=== PATIENT | female | born 1935 | race Caucasian/White ===

== ENCOUNTER 2022-09-09 16:26 | Outpatient (CLI) | payer MEDICARE, OTHER, BC, SELFPAY ==
--- NOTE | 2022-09-09 16:15 | DI.RAD_ITS ---
Exam(s) XR ANKLE LT COMPLETE EXAM: XR ANKLE LT COMPLETE CLINICAL HISTORY: left ankle pain, M25.572 TECHNIQUE: 2D digital imaging was performed. Three views. COMPARISON: No exams were available for comparison FINDINGS: BONES: No acute fracture is present. No bony destructive lesion is seen. JOINTS:The ankle mortise is normally aligned. SOFT TISSUE: Diffuse swelling greater around the malleoli. IMPRESSION: Soft tissue swelling. DATA REPOSITORY: RADIATION DOSE DELIVERED:
== END 2022-09-09 16:46 ==
LOC: DI 16:28
PROVIDERS: Visit Provider Physician Assistant
DX: M25.572 Pain in left ankle and joints of left foot (principal); M25.472 Effusion, left ankle
CPT/HCPCS: 73610

== ENCOUNTER 2022-10-02 20:05 | Emergency (ER) | payer MEDICARE, OTHER, BC, SELFPAY ==
[2022-10-02 20:15] VITALS: BP 184/59; PULSE 61; RESP 14; TEMP 36.7; O2SAT 98
--- NOTE | 2022-10-02 20:58 | W.ED.GENAD ---
Discharge Plan Disposition Patient Disposition: Home Discharge Details Clinical Impression: Thrombophlebitis Primary Care Provider: Jay Hoffmann ED Provider: Khai Long Home Meds and New Rx's Prescriptions: No Action atenolol 100 mg tablet 100 mg PO DAILY hydrochlorothiazide 25 mg tablet 25 mg PO DAILY lisinopril 10 mg tablet 10 mg PO DAILY simvastatin 20 mg tablet 20 mg PO DAILY dorzolamide-timolol (PF) 2-0.5 % drops 1 drp ophthalmic (eye) QAM AND QPM Rx Instructions: 1 drop R eye AM/PM cyanocobalamin (vitamin B-12) 1,000 mcg capsule 1,000 mcg PO DAILY glucosamine HCl 500 mg tablet 1,000 mg PO DAILY Rx Instructions: administer with a meal calcium citrate 500 mg tablet, effervescent 500 mg PO DAILY Discharge Instructions Instructions: Superficial Thrombophlebitis (ED) Additional Instructions: At this time you have evidence of thrombophlebitis which are mild clots in the superficial vessels. Please take a daily 325 aspirin. Do not take any ibuprofen with this. If you do notice any stomach irritation or black stools please stop taking it immediately and take Tums or Pepto-Bismol to help settle your stomach. You can take this aspirin for the next week. Please apply a gentle Tom wrap or knee-high stockings to your left lower extremity. Apply warm compresses every 4 hours throughout the day to help it reabsorb. If you notice any worsening of your symptoms, or any new symptoms such as vomiting, diarrhea, fever, chills, shortness of breath, chest pain, numbness, weakness, or fainting , please return immediately to the emergency department for reevaluation. Please follow up with your primary care provider as soon as possible for reassessment and reevaluation. As always, it was a pleasure participating in your medical care today. Discharge Data Discharge Date/Time-TO BE ENTERED AT DEPARTURE: 10/02/22 21:05 Medical Decision Making 87-year-old female with a past medical history of hypertension, high cholesterol, who does have a somewhat chronic wound on the right coleman secondary to her previous laceration who presents today for irritation of the superficial varicosities on the left leg. Patient states that she has been having quite a few drives lasting 3 to 4 hours over the last few days. She has noticed some irritation and swelling in the varicose veins because of this. They are mildly tender. She denies any chest pain or shortness of breath. No history of blood clots. She is not on any blood thinners. No other modifying factors. Physical exam demonstrates a few peripheral varicosities which are slightly red and minimally tender to the touch. Limited bedside ultrasound demonstrates evidence of small clots noted in the varicosities. Evaluation of the deep vessels shows no evidence of blood clot. Right lower extremity demonstrates a well bandaged well-healing chronic wound. No evidence of abscess redness drainage or discharge. Symptoms inconsistent with DVT or PE. No current ultrasonography for formal ultrasonography is available at this time. However since there is no clinical evidence of DVT, and her symptoms are focally located on the superficial varicosities, there does not appear to be any clear indication for other emergent ultrasonography at this time. We will recommend daily aspirin, heat/warm compresses, and compression stockings. Discussed red flags for which to return. I have extensively reviewed the treatment plan and discharge instructions with the patient and their family. I have addressed all patient concerns at this time. The patient and family was made aware of what symptoms to monitor for that would warrant a return to the emergency department. Discussed the plan with the patient and family, they demonstrate verbal understanding and agreement with our assessment and plan at this time. The documentation in this chart was dictated using [employer] dictation software. Please excuse any dictation errors. HPI General Date/Time Provider Initiated Documentation: 10/02/22 20:45. HPI Narrative: 87-year-old female with a past medical history of hypertension, high cholesterol, who does have a somewhat chronic wound on the right coleman secondary to her previous laceration who presents today for irritation of the superficial varicosities on the left leg. Patient states that she has been having quite a few drives lasting 3 to 4 hours over the last few days. She has noticed some irritation and swelling in the varicose veins because of this. They are mildly tender. She denies any chest pain or shortness of breath. No history of blood clots. She is not on any blood thinners. No other modifying factors. Related Data Home Medications Medication Instructions Recorded Confirmed atenolol 100 mg tablet 100 mg PO DAILY 09/09/22 09/09/22 calcium citrate 500 mg (2,376 mg) 500 mg PO DAILY 09/09/22 09/09/22 effervescent tablet cyanocobalamin (vitamin B-12) 1,000 mcg PO DAILY 09/09/22 09/09/22 1,000 mcg capsule dorzolamide 2 %-timolol 0.5 % (PF) 1 drp ophthalmic (eye) QAM AND QPM 09/09/22 09/09/22 eye drops glucosamine HCl 500 mg tablet 1,000 mg PO DAILY 09/09/22 09/09/22 hydrochlorothiazide 25 mg tablet 25 mg PO DAILY 09/09/22 09/09/22 lisinopril 10 mg tablet 10 mg PO DAILY 09/09/22 09/09/22 simvastatin 20 mg tablet 20 mg PO DAILY 09/09/22 09/09/22 Allergies Allergy/AdvReac Type Severity Reaction Status Date / Time morphine AdvReac Intermediate vomit Verified 09/09/22 15:47 General Stated Complaint: GenMedical ELLI: 3 Review of Systems All systems reviewed & are unremarkable except as noted in HPI and below PFSH All Active Problems Thrombophlebitis (Acute) Social History Smoking/Tobacco Use Status: Unknown Smoking risk assessment performed?: Yes Alcohol Intake: current Alcohol Intake frequency: holidays/special occasions only Substance use type: does not use Do you feel safe at home: Yes Do you feel safe in your relationship?: Yes Exam Narrative Exam Narrative: 1.Const: Well-nourished, Well-developed, appearing stated age 2.Eyes: PERRL, no conjunctival injection, and symmetrical lids. 3.ENT: Atraumatic external nose and ears. Moist MM. Neck: Symmetric, trachea midline, No thyromegaly. 4.CVS: +S1/S2, No murmurs or gallops. Peripheral pulses 2+ and equal in all extremities. Brisk capillary refill in all extremities. 5.RESP: Unlabored respiratory effort. Clear to auscultation bilaterally. No wheezes rales or rhonchi 6.GI: Soft, Nontender/Nondistended, No hepatosplenomegaly. No guarding or rebound. 7.MSK: Normocephalic/Atraumatic, no calf tenderness on either lower extremity. Patient does have a few peripheral varicosities which are slightly red and minimally tender to the touch. Limited bedside ultrasound demonstrates evidence of small clots noted in the varicosities. Evaluation of the deep vessels shows no evidence of blood clot. Right lower extremity demonstrates a well bandaged well-healing chronic wound. No evidence of abscess redness drainage or discharge. 8.Skin: Warm, Dry. Please see musculoskeletal 9.Neuro: desktop engineer II-XII grossly intact. Sensation grossly intact, no focal neurologic deficits. 10.Psych: (AAO) x3. Appropriate mood and affect Course Vital Signs Vital signs: Vital Signs Temperature 36.7 C 10/02/22 20:15 Pulse 61 10/02/22 20:15 Respiratory Rate 14 10/02/22 20:15 Blood Pressure 184/59 H 10/02/22 20:15 Pulse Oximetry 98 10/02/22 20:15 Temperature 36.7 C 10/02/22 20:15 Temperature Source Temporal Artery Scan 10/02/22 20:15 Pulse 61 10/02/22 20:15 Respiratory Rate 14 10/02/22 20:15 Blood Pressure 184/59 H 10/02/22 20:15 Blood Pressure Position Sitting 10/02/22 20:15 Pulse Oximetry 98 10/02/22 20:15 Oxygen Delivery Method Room Air 10/02/22 20:15 Oxygen Flow Rate 0 10/02/22 20:15 Pain Level 0 10/02/22 20:15 Comment 5/10 while walking but goes away 10/02/22 20:15
== END 2022-10-02 21:05 | disposition home or self-care (01) ==
PROVIDERS: Emergency Provider Student in an Organized Health Care Education/Training Program
DX: I80.02 Phlebitis and thrombophlebitis of superficial vessels of left lower extremity (principal)
CPT/HCPCS: 99281; 99282

== ENCOUNTER 2023-03-26 05:39 | Emergency (ER) | payer MEDICARE, OTHER, BC, SELFPAY ==
--- NOTE | 2023-03-26 05:45 | DI.CT_ITS ---
Exam(s) CT HEAD CERV SPINE FACIAL WO EXAM: CT HEAD CERV SPINE FACIAL WO CLINICAL HISTORY: fell, hit left lateral anabaptist/brow. TECHNIQUE: Imaging Protocol: Axial computed tomography images with coronal and sagittal reformatted images were created and reviewed COMPARISON: No exams were available for comparison FINDINGS: CT BRAIN: There are no skull fractures nor fluid in the visualized paranasal sinuses. There is no evidence of intracranial hemorrhage, mass effect, or shift of midline structures. There are no extra-axial fluid collections. The ventricles are not enlarged or shifted and there is no blo od within the ventricular system nor within the basal cisterns. The amount of symmetrical involutional changes consistent with this patient's advanced age. CT MAXILLOFACIAL BONES: There is no evidence of facial fractures nor fluid in the visualized paranasal sinuses. there is no evidence of orbital blowout fracture. CT CERVICAL SPINE: There is no evidence of fracture nor listhesis. No significant prevertebral soft tissue swelling. There is chronic disc space narrowing at C4-5 level. Moderate disc space narrowing at C6-7 and mild degenerative anterolisthesis of C6 upon C7. Multilevel facet arthropathy but no evidence of facet ma lalignment. No osseous lesions. IMPRESSION: No acute intracranial findings on this noninfused CT scan of the brain. No evidence of facial nor orbital blowout fractures. No evidence of cervical spine fracture, malalignment, nor acute compromise of the cervical spinal can al. Degenerative changes. RADIATION DOSE DELIVERED: 1,760.06mGy.cm Total DLP DATA REPOSITORY: All CT scans at this facility are submitted to the National Radiology Data Registry (NRDR) Dose Index Registry (DIR) with the [employer] ([employer]). RADIATION OPTIMIZATION: All CT scans at this facility use at least one of these dose optimization te chniques: automated exposure control; mA and/or kV adjustment per patient size (includes targeted exa ms where dose is matched to clinical indication); or iterative reconstruction.
--- NOTE | 2023-03-26 05:45 | DI.RAD_ITS ---
Exam(s) XR FEMUR LT EXAM: XR FEMUR LT CLINICAL HISTORY: fell, left hip pain. TECHNIQUE: 2D digital imaging was performed. COMPARISON: No exams were available for comparison FINDINGS: Two views. There is no evidence of left hip nor left femur fracture. No hip joint space narrowing. Bone densit y normal. No osseous lesions. No radiopaque foreign body. IMPRESSION: No osseous findings in the left femur. DATA REPOSITORY: RADIATION DOSE DELIVERED:
--- NOTE | 2023-03-26 05:45 | DI.RAD_ITS ---
Exam(s) XR PELVIS AP EXAM: XR PELVIS AP CLINICAL HISTORY: fell, left hip pain. TECHNIQUE: 2D digital imaging was performed. COMPARISON: No exams were available for comparison FINDINGS: Single AP view pelvis. There is no evidence of pelvic nor hip fracture. No degenerative changes noted in the hips. Bone de nsity is normal. SI joints unremarkable. IMPRESSION: No fractures in the pelvis and hips. DATA REPOSITORY: RADIATION DOSE DELIVERED:
[2023-03-26 05:46] VITALS: BP 157/78; PULSE 59; RESP 16; TEMP 36.5; O2SAT 97
--- NOTE | 2023-03-26 05:52 | ED.GENADUL_ITS ---
HPI General Stated Complaint: Laceration ELLI: 4 Date/Time Provider Initiated Documentation: 03/26/23 05:41. HPI Narrative: This is a pleasant 88-year-old female with a past medical history of hypertension, high cholesterol, tonsillectomy, who is not on any blood thinners who presents today for evaluation of a fall from bed. Patient sleeps on a bed that is slightly elevated off the ground per family. She got up this morning and rolled off of the bed and hit the bedside table. She had immediate pain and bleeding from her left brow. She also hit her left hip. She had no loss of consciousness. She denies chest pain or shortness of breath. No other pain aside for the left hip and the left restoration. Tetanus was updated around 7 to 8 years ago. Related Data Home Medications Medication Instructions Recorded Confirmed atenolol 100 mg tablet 100 mg PO DAILY 09/09/22 03/26/23 calcium citrate 500 mg (2,376 mg) 500 mg PO DAILY 09/09/22 03/26/23 effervescent tablet cyanocobalamin (vitamin B-12) 1,000 mcg PO DAILY 09/09/22 03/26/23 1,000 mcg capsule dorzolamide 2 %-timolol 0.5 % (PF) 1 drp ophthalmic (eye) QAM AND QPM 09/09/22 03/26/23 eye drops glucosamine HCl 500 mg tablet 1,000 mg PO DAILY 09/09/22 03/26/23 hydrochlorothiazide 25 mg tablet 25 mg PO DAILY 09/09/22 03/26/23 lisinopril 10 mg tablet 10 mg PO DAILY 09/09/22 03/26/23 simvastatin 20 mg tablet 20 mg PO DAILY 09/09/22 03/26/23 ibuprofen 200 mg tablet (Advil) 200 mg PO Q6H PRN 11/17/22 03/26/23 latanoprost 0.005 % eye drops 1 drp ophthalmic (eye) DAILY 11/17/22 03/26/23 (Xalatan) Allergies Allergy/AdvReac Type Severity Reaction Status Date / Time morphine AdvReac Intermediate vomit Verified 03/26/23 05:45 Review of Systems All systems reviewed & are unremarkable except as noted in HPI and below PFSH All Active Problems (Updated 03/26/23 @ 07:15 by Khai Long DO) Contusion of bone (Acute) Laceration of scalp (Acute) Impairment of speech discrimination (Acute) Sensorineural hearing loss (SNHL) of both ears (Acute) Impacted cerumen, bilateral (Acute) Medical History Osteopenia Osteoarthritis of right knee Impaired fasting glucose Hypertension Glaucoma, right eye Frequent falls Chronic kidney disease Atrophic vaginitis Actinic keratoses Surgical History Hx of tonsillectomy Hx of lumpectomy Family History Mother Hypertension Social History Smoking/Tobacco Use Status: Never Smoking risk assessment performed?: Yes Alcohol Intake: current Alcohol Intake frequency: holidays/special occasions only Drug use: Never Substance use type: does not use Housing: house Do you feel safe at home: Yes Do you feel safe in your relationship?: Yes Exam Narrative Exam Narrative: 1.Const: Well-nourished, Well-developed, appearing stated age 2.Eyes: PERRL, no conjunctival injection, and symmetrical lids. 3.ENT: Atraumatic external nose and ears. Moist MM. Neck: Symmetric, trachea midline, No thyromegaly. There is no evidence of raccoon eyes, russell sign, CSF rhinorrhea, mastoid tenderness, cranial crepitus, hemotympanum, exophthalmos, or hyphema. Patient demonstrates intact dentition with no signs of tooth avulsion or fracture, no signs of jaw deformity, no evidence of a LeFort's fracture, with an intact palate, nose and orbital region. There is no evidence of a nasal septal hematoma. No proptosis. Jaw closes symmetrically. Airway is clear. There is small laceration and hematoma over the left restoration. 4.CVS: +S1/S2, No murmurs or gallops. Peripheral pulses 2+ and equal in all extremities. Brisk capillary refill in all extremities. 5.RESP: Unlabored respiratory effort. Clear to auscultation bilaterally. No wheezes rales or rhonchi 6.GI: Soft, Nontender/Nondistended, No hepatosplenomegaly. No guarding or rebound. 7.MSK: Normocephalic/Atraumatic, Extremities w/o deformity or ttp No cyanosis or clubbing, Normal movement of all extremities. No midline tenderness to palpation over the CTLS spine. Normal ROM in flexion, extension, side bend, and rotation. Patient has +5 out of 5 strength in the lower extremities in dorsiflexion and plantarflexion, knee flexion and extension, hip flexion and extension. Normal strength for dorsiflexion and plantar flexion of the great toe bilaterally. There is +2 over 2 dorsalis pedis pulses bilaterally. There is normal sensation to the skin with light touch at the foot, knee, and hip. Normal saddle sensation. Good sensation over the deep sural nerve area bilaterally. Reflexes are +2 over 4 in the patellar reflex bilaterally. +5 out of 5 strength in the medial, ulnar, radial nerve distribution bilaterally in the hands as well as intact light touch sensation to these dermatomes on the hands Patient does demonstrate minimal tenderness over the left hip on palpation at the greater trochanter. Patient ambulates well though without any other pain otherwise. 8.Skin: Warm, Dry. Small hematoma and 4 cm laceration over left restoration. No active hemorrhage. 9.Neuro: local area network administrator II-XII grossly intact. Sensation grossly intact, no focal neurologic deficits. All 6 cardinal planes of vision are fully intact. No evidence of rotatory or vertical nystagmus. The patient demonstrated a normal [id number], good dexterity. There was no evidence of dysdiadochokinesia. Patient was able to ambulate without difficulty. There was no wide-based gait. Romberg testing was normal. Atsb-by-ecjx testing was normal. Sensation was intact bilaterally as well as muscle strength bilaterally for all extremities. Patient was able to verbalize butter cup with no slurring, or miss pronunciation. 10.Psych: (AAO) x3. Appropriate mood and affect Course Vital Signs Vital signs: Vital Signs Temperature 36.5 C 03/26/23 05:46 Pulse 59 L 03/26/23 05:46 Respiratory Rate 16 03/26/23 05:46 Blood Pressure 157/78 H 03/26/23 05:46 Pulse Oximetry 97 03/26/23 05:46 Temperature 36.5 C 03/26/23 05:46 Temperature Source Temporal Artery Scan 03/26/23 05:46 Pulse 59 L 03/26/23 05:46 Respiratory Rate 16 03/26/23 05:46 Respiratory Effort Normal, Non-Labored 03/26/23 05:47 Blood Pressure 157/78 H 03/26/23 05:46 Pulse Oximetry 97 03/26/23 05:46 Oxygen Delivery Method Room Air 03/26/23 05:46 Oxygen Flow Rate 0 03/26/23 05:46 Pain Level 7 03/26/23 05:46 Procedures Laceration Laceration 1: Site: scalp Side (If applicable): left Size (cm): 4 Description: linear Depth: simple, single layer Local Anesthetic: Lidocaine 1% and with Epi Amount of anesthesia used (mL): 5 Pre-repair: wound explored, irrigated extensively and deep structures intact Skin layer closed with: nylon Size (cm): 4-0 and 5-0 Number of sutures: 3 Technique: simple, interrupted Medical Decision Making This is a pleasant 88-year-old female with a past medical history of hypertension, high cholesterol, tonsillectomy, who is not on any blood thinners who presents today for evaluation of a fall from bed. Patient sleeps on a bed that is slightly elevated off the ground per family. She got up this morning and rolled off of the bed and hit the bedside table. She had immediate pain and bleeding from her left brow. She also hit her left hip. She had no loss of consciousness. She denies chest pain or shortness of breath. No other pain aside for the left hip and the left restoration. Tetanus was updated around 7 to 8 years ago. Physical exam demonstrates 4 cm laceration hematoma over the left brow, as well as minimal tenderness over the left hip. She ambulates well though. No other tenderness on exam. Due to age and mechanism will get a CT scan of the head and face, as well as an x-ray of the hip. Will update patient's tetanus, suture the laceration, monitor closely and reassess. 7:[address] scan shows no evidence of acute intracranial etiology or cervical spine etiology. Old nasal fractures noted. This does not appear clinically acute. X-ray of the hip and pelvis negative. Patient feels well. Patient was sutured with 3 simple interrupted sutures. She tolerated this well. Normal neurologic assessment on reexamination. Patient stable for discharge. I have extensively reviewed the treatment plan and discharge instructions with the patient and their family. I have addressed all patient concerns at this time. The patient and family was made aware of what symptoms to monitor for that would warrant a return to the emergency department. Discussed the plan with the patient and family, they demonstrate verbal understanding and agreement with our assessment and plan at this time. The documentation in this chart was dictated using [employer] dictation software. Please excuse any dictation errors. FINDINGS: Limitations: Mild motion artifact. Brain: No intracranial hemorrhage appreciated. No significant focal mass effect or significant midline shift. Generalized parenchymal volume loss. Cerebral ventricles: No disproportionate ventriculomegaly. Paranasal sinuses: No air-fluid levels seen. Mastoid air cells: No mastoid effusion. Bones/joints: No acute cranial vault fracture seen. Soft tissues: No acute findings. Vasculature: Arterial calcifications. IMPRESSION: 1. No intracranial sequelae of trauma appreciated. 2. Nonacute findings as outlined above. 3. Additional studies dictated separately. FINDINGS: Limitations: Mild motion artifact. Artifact from metallic dental hardware obscures surrounding tissues. Orbital cavities: Globes intact. Bones/joints: Nondisplaced fracture of the anterior nasal spine, age indeterminate. Paranasal sinuses: No air-fluid levels seen. Lymph nodes: Bilateral cervical lymph nodes. Soft tissues: No acute pertinent abnormality demonstrated. Dental: Lucency surrounding several teeth. Correlate with dental examination. IMPRESSION: 1. Nondisplaced fracture of the anterior nassal spine, age indeterminate. 2. Additional studies dictated separately. FINDINGS: Bones/joints: No acute cervical spine fracture identified. Multilevel degenerati ve changes. Multilevel degenerative changes. At C3-C4 there is mild right foraminal narrowing. At C4-C5 there is marked right foraminal narrowing. At C5-C6 there is marked right foraminal narrowing. A t C6-C7 there is moderate right foraminal narrowing. Mild anterolisthesis of C6 on C7. Straightening of the normal cervical lordosis may reflect positioning or muscle spasm; correlate clinically. Lungs: No acute findings. Thyroid: Multiple thyroid nodules. Consider follow-up. Lymph nodes: Bilateral cervical lymph nodes. Vasculature: Arterial calcifications. Soft tissues: No acute findings. IMPRESSION: 1. No acute cervical spine fracture identified. 2. Findings as above. 3. Additional studies dictated separately. Thank you for allowing us to participate in the care of your patient. Dictated and Authenticated by: Shereen Gudino MD 03/26/2023 7:02 AM Eastern Time ([place] & [place]) FINDINGS: Bones/joints: No evidence of acute fracture. Small osseous lucencies, multiple myeloma or metastatic disease to be excluded Soft tissues: Unremarkable. IMPRESSION: No evidence of acute fracture Thank you for allowing us to participate in the care of your patient. Dictated and Authenticated by: Diamante Kelley MD 03/26/2023 7:02 AM Eastern Time ([place] & [place]) FINDINGS: Bones/joints: No evidence of fracture or dislocation. Small osseous lucencies present Soft tissues: Unremarkable. IMPRESSION: No evidence of acute fracture. Thank you for allowing us to participate in the care of your patient. Dictated and Authenticated by: Diamante Kelley MD 03/26/2023 7:05 AM Eastern Time ([place] & [place]) Quality:SDOH Health Related Social Needs: No Data to Display Discharge Plan Disposition Patient Disposition: Home Discharge Details Clinical Impression: Laceration of scalp, Contusion of bone Primary Care Provider: Harpreet Kiran ED Provider: Khai Long Home Meds and New Rx's Prescriptions: No Action atenolol 100 mg tablet 100 mg PO DAILY hydrochlorothiazide 25 mg tablet 25 mg PO DAILY lisinopril 10 mg tablet 10 mg PO DAILY simvastatin 20 mg tablet 20 mg PO DAILY dorzolamide-timolol (PF) 2-0.5 % drops 1 drp ophthalmic (eye) QAM AND QPM Rx Instructions: 1 drop R eye AM/PM cyanocobalamin (vitamin B-12) 1,000 mcg capsule 1,000 mcg PO DAILY glucosamine HCl 500 mg tablet 1,000 mg PO DAILY Rx Instructions: administer with a meal calcium citrate 500 mg tablet, effervescent 500 mg PO DAILY ibuprofen [Advil] 200 mg tablet 200 mg PO Q6H PRN latanoprost [Xalatan] 0.005 % drops 1 drp ophthalmic (eye) DAILY Discharge Instructions Instructions: Care For Your Stitches (ED) Additional Instructions: At this time the CAT scan of your scalp and head show no evidence of bony fracture or bleed in or around your brain. Your laceration has been sutured. The x-ray of your hip shows no fracture either thankfully. I suspect you have suffered a contusion over the left hip which is causing your pain. Please take Tylenol as needed for pain control. Your tetanus shot has been updated. Please keep the area clean and dry. Monitor closely for any redness, drainage or discharge. Please return in 7 to 10 days to have the wound reassessed and the sutures removed. If you come back to the emergency department here it will be free of charge for the suture removal. For long-term scar cosmesis, please make sure to avoid any sun to the area for the next year. Apply moisturizer or vitamin E to the area twice daily for the next 12 months for the best chance of wound/scar medication. Please take a daily multivitamin as well as this can help in wound healing. If you notice any worsening of your symptoms, or any new symptoms such as vomiting, diarrhea, fever, chills, shortness of breath, chest pain, numbness, weakness, or fainting , please return immediately to the emergency department for reevaluation. Please follow up with your primary care provider as soon as possible for reassessment and reevaluation. As always, it was a pleasure participating in your medical care today. Referrals: Harpreet Kiran [Primary Care Provider] -
[2023-03-26] MEDS: Lidocaine/Epinephri/Tetracaine Topical Gel 3 ML TP (05:58)
--- NOTE | 2023-03-26 07:02 | DI.VRAD_ITS ---
PROCEDURE INFORMATION: Exam: CT Head Without Contrast Exam date and time: 03/26/2023 6:18 AM Age: 88 years old Clinical indication: Injury or trauma; Fall; Blunt trauma (contusions or hematomas); Consciousness not specified; Head/scalp; Loss of consciousness not known TECHNIQUE: Imaging protocol: Computed tomography of the head without contrast. COMPARISON: No relevant prior studies available. FINDINGS: Limitations: Mild motion artifact. Brain: No intracranial hemorrhage appreciated. No significant focal mass effect or significant midline shift. Generalized parenchymal volume loss. Cerebral ventricles: No disproportionate ventriculomegaly. Paranasal sinuses: No air-fluid levels seen. Mastoid air cells: No mastoid effusion. Bones/joints: No acute cranial vault fracture seen. Soft tissues: No acute findings. Vasculature: Arterial calcifications. IMPRESSION: 1. No intracranial sequelae of trauma appreciated. 2. Nonacute findings as outlined above. 3. Additional studies dictated separately. PROCEDURE INFORMATION: Exam: CT Maxillofacial Without Contrast Exam date and time: 03/26/2023 6:18 AM Age: 88 years old Clinical indication: Injury or trauma; Fall; Blunt trauma (contusions or hematomas); Consciousness not specified; Head/scalp; Loss of consciousness not known TECHNIQUE: Imaging protocol: Computed tomography of the face without contrast. COMPARISON: No relevant prior studies available. FINDINGS: Limitations: Mild motion artifact. Artifact from metallic dental hardware obscures surrounding tissues. Orbital cavities: Globes intact. Bones/joints: Nondisplaced fracture of the anterior nasal spine, age indeterminate. Paranasal sinuses: No air-fluid levels seen. Lymph nodes: Bilateral cervical lymph nodes. Soft tissues: No acute pertinent abnormality demonstrated. Dental: Lucency surrounding several teeth. Correlate with dental examination. IMPRESSION: 1. Nondisplaced fracture of the anterior nasal spine, age indeterminate. 2. Additional studies dictated separately. PROCEDURE INFORMATION: Exam: CT Cervical Spine Without Contrast Exam date and time: 03/26/2023 6:18 AM Age: 88 years old Clinical indication: Injury or trauma; Fall; Blunt trauma (contusions or hematomas); Consciousness not specified; Head/scalp; Loss of consciousness not known TECHNIQUE: Imaging protocol: Computed tomography of the cervical spine without contrast. COMPARISON: No relevant prior studies available. FINDINGS: Bones/joints: No acute cervical spine fracture identified. Multilevel degenerative changes. Multilevel degenerative changes. At C3-C4 there is mild right foraminal narrowing. At C4-C5 there is marked right foraminal narrowing. At C5-C6 there is marked right foraminal narrowing. At C6-C7 there is moderate right foraminal narrowing. Mild anterolisthesis of C6 on C7. Straightening of the normal cervical lordosis may reflect positioning or muscle spasm; correlate clinically. Lungs: No acute findings. Thyroid: Multiple thyroid nodules. Consider follow-up. Lymph nodes: Bilateral cervical lymph nodes. Vasculature: Arterial calcifications. Soft tissues: No acute findings. IMPRESSION: 1. No acute cervical spine fracture identified. 2. Findings as above. 3. Additional studies dictated separately. Dictated and Authenticated by: Shereen Gudino MD. Ordering:VIRAJ Ridley MD
--- NOTE | 2023-03-26 07:02 | DI.VRAD_ITS ---
PROCEDURE INFORMATION: Exam: XR Pelvis Exam date and time: 03/26/2023 6:37 AM Age: 88 years old Clinical indication: Injury or trauma; Fall; Blunt trauma (contusions or hematomas); Left; Hip TECHNIQUE: Imaging protocol: Radiologic exam of the pelvis. Views: 1 or 2 view. COMPARISON: No relevant prior studies available. FINDINGS: Bones/joints: No evidence of acute fracture. Small osseous lucencies, multiple myeloma or metastatic disease to be excluded Soft tissues: Unremarkable. IMPRESSION: No evidence of acute fracture Dictated and Authenticated by: Diamante Kelley MD. Ordering:VIRAJ Ridley MD
--- NOTE | 2023-03-26 07:05 | DI.VRAD_ITS ---
PROCEDURE INFORMATION: Exam: XR Left Femur Exam date and time: 03/26/2023 6:40 AM Age: 88 years old Clinical indication: Injury or trauma; Fall; Blunt trauma; Thigh or upper leg; Left TECHNIQUE: Imaging protocol: Radiologic exam of the left femur. Views: 2 views. COMPARISON: CR XR PELVIS AP 03/26/2023 6:37 AM FINDINGS: Bones/joints: No evidence of fracture or dislocation. Small osseous lucencies present Soft tissues: Unremarkable. IMPRESSION: No evidence of acute fracture. Dictated and Authenticated by: Diamante Kelley MD. Ordering:VIRAJ Ridley MD
== END 2023-03-26 07:23 | disposition home or self-care (01) ==
PROVIDERS: Emergency Provider Student in an Organized Health Care Education/Training Program; PCP Family Medicine
DX: S01.112A Laceration without foreign body of left eyelid and periocular area, initial encounter (principal); S70.02XA Contusion of left hip, initial encounter; I10 Essential (primary) hypertension; E78.5 Hyperlipidemia, unspecified; Z23 Encounter for immunization; W06.XXXA Fall from bed, initial encounter; Y92.013 Bedroom of single-family (private) house as the place of occurrence of the external cause
CPT/HCPCS: 12013; 73552; 90471; 90715; 99284; 70450; 70486; 72125; 72170

== ENCOUNTER 2023-04-04 10:20 | Emergency (ER) | payer MEDICARE, BC, OTHER, SELFPAY ==
[2023-04-04 10:29] VITALS: BP 179/85; PULSE 69; RESP 20; TEMP 36.7; O2SAT 97
--- NOTE | 2023-04-04 10:36 | W.ED.GENAD ---
HPI General Date/Time Provider Initiated Documentation: 04/04/23 10:27. HPI Narrative: 88-year-old female presents for staple removal left scalp Related Data Home Medications Medication Instructions Recorded Confirmed atenolol 100 mg tablet 100 mg PO DAILY 09/09/22 04/04/23 calcium citrate 500 mg (2,376 mg) 500 mg PO DAILY 09/09/22 04/04/23 effervescent tablet cyanocobalamin (vitamin B-12) 1,000 mcg PO DAILY 09/09/22 04/04/23 1,000 mcg capsule dorzolamide 2 %-timolol 0.5 % (PF) 1 drp ophthalmic (eye) QAM AND QPM 09/09/22 04/04/23 eye drops glucosamine HCl 500 mg tablet 1,000 mg PO DAILY 09/09/22 04/04/23 hydrochlorothiazide 25 mg tablet 25 mg PO DAILY 09/09/22 04/04/23 lisinopril 10 mg tablet 10 mg PO DAILY 09/09/22 04/04/23 simvastatin 20 mg tablet 20 mg PO DAILY 09/09/22 04/04/23 ibuprofen 200 mg tablet (Advil) 200 mg PO Q6H PRN 11/17/22 04/04/23 latanoprost 0.005 % eye drops 1 drp ophthalmic (eye) DAILY 11/17/22 04/04/23 (Xalatan) Allergies Allergy/AdvReac Type Severity Reaction Status Date / Time morphine AdvReac Intermediate vomit Verified 04/04/23 10:31 General Stated Complaint: SutureRem ELLI: 5 Review of Systems Narrative: Scalp suture removal Exam Narrative Exam Narrative: Skin: 3 cm linear wound well-healed clean dry intact, 3 simple interrupted sutures in place Course Vital Signs Vital signs: Vital Signs Temperature 36.7 C 04/04/23 10:29 Pulse 69 04/04/23 10:29 Respiratory Rate 20 04/04/23 10:29 Blood Pressure 179/85 H 04/04/23 10:29 Pulse Oximetry 97 04/04/23 10:29 Temperature 36.7 C 04/04/23 10:29 Temperature Source Skin 04/04/23 10:29 Pulse 69 04/04/23 10:29 Respiratory Rate 20 04/04/23 10:29 Respiratory Effort Normal, Non-Labored 04/04/23 10:32 Blood Pressure 179/85 H 04/04/23 10:29 Blood Pressure Position Sitting 04/04/23 10:29 Pulse Oximetry 97 04/04/23 10:29 Oxygen Delivery Method Room Air 04/04/23 10:29 Oxygen Flow Rate 0 04/04/23 10:29 Medical Decision Making 88-year-old female presents for suture removal left scalp, 3 cm linear wound well-healed clean dry intact, no signs of infection, 3 simple interrupted sutures intact, removed at bedside. Hemostatic no signs of infection. Home care instructions and return precautions given Quality:SDOH Health Related Social Needs: No Data to Display [facility] All Active Problems (Updated 04/04/23 @ 10:38 by Meek Castillo MD) Encounter for removal of sutures (Acute) Contusion of bone (Acute) Laceration of scalp (Acute) Impairment of speech discrimination (Acute) Sensorineural hearing loss (SNHL) of both ears (Acute) Impacted cerumen, bilateral (Acute) Medical History Osteopenia Osteoarthritis of right knee Impaired fasting glucose Hypertension Glaucoma, right eye Frequent falls Chronic kidney disease Atrophic vaginitis Actinic keratoses Surgical History Hx of tonsillectomy Hx of lumpectomy Family History Mother Hypertension Social History Smoking/Tobacco Use Status: Never Smoking risk assessment performed?: Yes Alcohol Intake: current Alcohol Intake frequency: holidays/special occasions only Drug use: Never Substance use type: does not use Housing: house Do you feel safe at home: Yes Do you feel safe in your relationship?: Yes Discharge Plan Disposition Condition: Improving Discharge Details Chief Complaint: SutureRem Clinical Impression: Encounter for removal of sutures Primary Care Provider: Harpreet Kiran ED Provider: Meek Castillo Home Meds and New Rx's Prescriptions: No Action atenolol 100 mg tablet 100 mg PO DAILY hydrochlorothiazide 25 mg tablet 25 mg PO DAILY lisinopril 10 mg tablet 10 mg PO DAILY simvastatin 20 mg tablet 20 mg PO DAILY dorzolamide-timolol (PF) 2-0.5 % drops 1 drp ophthalmic (eye) QAM AND QPM Rx Instructions: 1 drop R eye AM/PM cyanocobalamin (vitamin B-12) 1,000 mcg capsule 1,000 mcg PO DAILY glucosamine HCl 500 mg tablet 1,000 mg PO DAILY Rx Instructions: administer with a meal calcium citrate 500 mg tablet, effervescent 500 mg PO DAILY ibuprofen [Advil] 200 mg tablet 200 mg PO Q6H PRN latanoprost [Xalatan] 0.005 % drops 1 drp ophthalmic (eye) DAILY Discharge Instructions Instructions: Laceration (ED)
== END 2023-04-04 10:41 | disposition home or self-care (01) ==
LOC: ER 11:01
PROVIDERS: Emergency Provider Emergency Medicine; PCP Family Medicine
DX: S01.01XD Laceration without foreign body of scalp, subsequent encounter (principal)
CPT/HCPCS: 99281

== ENCOUNTER 2024-07-08 19:34 | Emergency (ER) | payer MEDICARE, BC, OTHER, SELFPAY ==
[2024-07-08] VITALS (51 sets, daily range): BP systolic 123–212; BP diastolic 41–127; PULSE 60–85; RESP 12–26; O2SAT 90–97
--- NOTE | 2024-07-08 19:30 | RT.EKG_ITS ---
APPROVED REPORT Exam: Resting ECG Reason for Exam: cva Patient Location: E HR:78 bpm ECG Measurements Heart Rate 78 AXIS WI 178 P 75 QRSd 85 QRS 80 QT 412 T -76 QTc 457 Conclusion Sinus rhythm...normal P axis, V-rate 60- 99 Atrial premature complexes in couplets...pair SV complexes w/ short R-R Repol abnrm suggests ischemia, diffuse leads...ST-T neg, ant/lat/inf
--- NOTE | 2024-07-08 19:30 | DI.CT_ITS ---
Exam(s) CT BRAIN NECK CTA EXAM: CT BRAIN NECK CTA CLINICAL HISTORY: ?cva. TECHNIQUE: Imaging Protocol: Axial CT angiography was performed with multi-slice acquisition and mu lti-planar and MIP reconstructions. CONTRAST MATERIAL: Intravenous: Omnipaque 350 Contrast volume:70 ml COMPARISON: CT CT HEAD CERV SPINE FACIAL WO from 03/26/2023 FINDINGS: CT Head W/O and W contrast: Artifact related to hearing aids. Ventricles and Extra axial spaces: Normal in size and morphology for the patient's age. Hemorrhage: None. Cerebral parenchyma: No evidence of acute infarct or mass. Moderate to severe atrophy. White matter changes of small vessel disease. Midline shift: None. Brainstem/Cerebellum: No acute findings.. Calvarium: Normal. Visualized Paranasal sinuses/Mastoids: Clear. Soft Tissues: Unremarkable. Enhancement: Normal. CTA Brain W: Internal Carotid Arteries: Petrous: The right internal carotid artery shows luminal narrowing in the petrous portion to the leve l of the clinoid. Distal to this level it is occluded Cavernous: Normal. Cerebral: Normal. Middle Cerebral Arteries: Right: No aneurysm, occlusion or significant stenosis. Left: No aneurysm, occlusion or significant stenosis. Anterior Cerebral Arteries: Right: No aneurysm, occlusion or significant stenosis. Left: No aneurysm, occlusion or significant stenosis. Posterior cerebral Arteries: Right: No aneurysm, occlusion or significant stenosis. Left: No aneurysm, occlusion or significant stenosis. Vertebral Arteries: Right: origin, branching off of the supraclinoid ICA. No flow seen in proximal portion, from a pproximately 5 millimeter length. Flow seen distal to this level.. Left: No aneurysm, occlusion or significant stenosis. Basilar Artery: No aneurysm, occlusion or significant stenosis. CTA Neck W: Common Carotid: Right: No dissection, occlusion or significant stenosis. Left: No dissection, occlusion or significant stenosis. External Carotid: Right: No dissection, occlusion or significant stenosis. Left: No dissection, occlusion or significant stenosis. Internal Carotid: Right: No dissection, occlusion or significant stenosis. Left: No dissection, occlusion or significant stenosis. Vertebral Artery: Right: No dissection, occlusion or significant stenosis. Left: No dissection, occlusion or significant stenosis. Lung Apices: No acute findings. Bones: No acute abnormality. Degenerative changes. Soft Tissues: Normal. IMPRESSION: 1. 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 Fet al origin of right posterior cerebral artery with no flow visible in the proximal portion. 2. Head CT: Moderate to severe atrophy. No hemorrhage or infarct visible. 3. CTA neck: Normal CTA examination of the neck. RADIATION DOSE DELIVERED: 2,094.48mGy.cm Total DLP DATA REPOSITORY: All CT scans at this facility are submitted to the National Radiology Data Registry (NRDR) Dose Index Registry (DIR) with the [employer] (ACR). RADIATION OPTIMIZATION: All CT scans at this facility use at least one of these dose optimization te chniques: automated exposure control; mA and/or kV adjustment per patient size (includes targeted exa ms where dose is matched to clinical indication); or iterative reconstruction.
--- NOTE | 2024-07-08 19:37 | ED.GENADUL_ITS ---
Discharge Plan Disposition Specific Acute Inpt Facility: [facility] Condition: Serious Discharge Details Chief Complaint: AMS/LOC Clinical Impression: Acute cerebrovascular accident (CVA) Primary Care Provider: Harpreet Kiran ED Provider: Oz Bansal Home Meds and New Rx's Prescriptions: No Action atenolol 100 mg tablet 100 mg PO DAILY hydrochlorothiazide 25 mg tablet 25 mg PO DAILY lisinopril 10 mg tablet 10 mg PO DAILY simvastatin 20 mg tablet 20 mg PO DAILY dorzolamide-timolol (PF) 2-0.5 % drops 1 drp ophthalmic (eye) QAM AND QPM Rx Instructions: 1 drop R eye AM/PM ibuprofen [Advil] 200 mg tablet 200 mg PO Q6H PRN latanoprost [Xalatan] 0.005 % drops 1 drp ophthalmic (eye) DAILY acetaminophen 500 mg tablet 500 mg PO Q6H PRN HPI General Mode of arrival: EMS . Date/Time Provider Initiated Documentation: 07/08/24 19:35 . Information obtained by: EMS . History of Present Illness 89 year old F presents to the emergency department with the chief complaint of sudden onset left sided weakness and aphasia, described as severe, Patient started experiencing this hour(s) (.5) and it has been constant. No relieving factors improve symptom(s), No exacerbating factors reported . Patient did receive the following treatments prior to arrival, none Related Data Home Medications ?Medication ?Instructions ?Recorded ?Confirmed atenolol 100 mg tablet 100 mg PO DAILY 09/09/22 07/08/24 dorzolamide 2 %-timolol 0.5 % (PF) 1 drp ophthalmic (eye) QAM AND QPM 09/09/22 07/08/24 eye drops hydrochlorothiazide 25 mg tablet 25 mg PO DAILY 09/09/22 07/08/24 lisinopril 10 mg tablet 10 mg PO DAILY 09/09/22 07/08/24 simvastatin 20 mg tablet 20 mg PO DAILY 09/09/22 07/08/24 ibuprofen 200 mg tablet (Advil) 200 mg PO Q6H PRN 11/17/22 07/08/24 latanoprost 0.005 % eye drops 1 drp ophthalmic (eye) DAILY 11/17/22 07/08/24 (Xalatan) acetaminophen 500 mg tablet 500 mg PO Q6H PRN 03/26/24 07/08/24 Allergies Allergy/AdvReac Type Severity Reaction Status Date / Time morphine AdvReac Intermediate vomit Verified 07/08/24 19:56 General ELLI: 5 Review of Systems Unobtainable due to mental status Exam Const Orientation: alert HENMT Head: normal to inspection Ears: external ears normal General nose exam: external nose normal Mouth: moist mucous membranes Eyes General: appearance normal, both eyes and all related structures Neck Neck: normal visual inspection Resp Effort & Inspection: normal respiratory effort Cardio Rate: regular rate Skin General skin exam: no rashes or lesions noted Neuro General: patient alert Cranial Nerves: PERRL Speech: speech abnormal Extrem General: normal to inspection Psych Mental Status: mental status grossly normal Medical Decision Making 89-year-old female with a history of hypertension hyperlipidemia comes in with EMS with concerns for an acute stroke. She apparently was with her son per EMS and at 645 he was with her and noticed an acute change in mental status and was having left-sided weakness. When EMS arrived she had fixed gaze to the right facial droop and was unable to move her left arm or left leg. She has had minimal amount of words when asked questions. I evaluated her initially on EMS stretcher and she had a fixed gaze to the right and was not answering questions when I asked her what she would look at me if I was standing on her right side. She had left arm and left leg drift that hit the bed and also right side and minimal drift. Given concern for stroke we will have them go straight to CT for CT and CTA. Also obtain CBC, CMP and teleneurology consult.NIH 15 on my exam. CTA shows ica occlusion on cta no hemorrhage. Evaluted by teleneuro and after discussion with family will proceed with TNK, current systolic bp is 215 so nicardipine ordered to try and lower this to less then 185 so TNK can be given Patient had nicardipine running for a few minutes and her BP was in the 140's systolic so this was discontinued. TNK given, [facility] [place] called for transfer since she's been given lytics and also possibly has an intervention amenable lesion BP went back up to 190 so nicardipine infusion was reinitiated. 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 Asymmetric decrease in caliber flow is seen throughout the petrous and cavernous segments of the right internal carotid artery with occlusion of the right ICA at the supraclinoid level. 2. There is origin of the right posterior cerebral artery with suspected clot seen in the supraclinoid right ICA showing extension into the most proximal segment of the right [employer] CONSERVATION OFFICER which appears patent distal to this level as described above. 3. No large vessel stenosis or occlusion detected involving the remaining major branches of the anterior or posterior intracranial circulation. 4. Cerebral atrophy and underlying microvascular ischemic changes with no acute transcortical infarction or recent intracranial hemorrhage detected. Lab Data Lab results reviewed: Yes I reviewed the patient's lab results. ECG Data Attestation: I personally reviewed and interpreted this ECG (s) as follows: Prior ECG tracings: available for review Interpretation: sinus rate of 78 pr 178 no stemi Quality:SDOH Health Related Social Needs: No Data to Display Critical Care Time Critical Care Time Critical Care Time: Yes Total Critical Care Time: 45 (minutes) Attestation: Time spent on frequent reassessments, lab review and hemodynamic monitoring in a patient with an acute CVA requiring nicardipine for blood pressure control PFSH All Active Problems (Updated 07/08/24 @ 21:34 by Oz Bansal MD) Acute cerebrovascular accident (CVA) (Acute) Impairment of speech discrimination (Acute) Sensorineural hearing loss (SNHL) of both ears (Acute) Impacted cerumen, bilateral (Acute) Medical History Leg weakness Retrocalcaneal bursitis Phlebitis of left lower extremity Melanoma in situ Hypokalemia Hyperlipidemia History of cellulitis Osteopenia Osteoarthritis of right knee Impaired fasting glucose Hypertension Glaucoma, right eye Frequent falls Chronic kidney disease Atrophic vaginitis Actinic keratoses Surgical History Hx of total knee replacement Hx of tonsillectomy Hx of lumpectomy Family History Mother Hypertension Paternal Aunt Dementia Social History Smoking/Tobacco Use Status: Never Smoking risk assessment performed?: Yes Alcohol Intake: current Alcohol Intake frequency: holidays/special occasions only Drug use: Never Substance use type: does not use Housing: house Education Level: college (3 yrs) Do you feel safe at home: Yes Do you feel safe in your relationship?: Yes
[2024-07-08] MEDS: Omnipaque 350 MG/ML 100 ML BTL IJ (19:46)
[2024-07-08 19:48] LABS: Abs Immature Grans 0.02 10^3/uL (0.0-0.06); Absolute Basophil Count 0.04 10^3/uL (0.0-0.2); Absolute Eosinophil Count 0.11 10^3/uL (0.0-0.7); Absolute Lymphocyte Count 2.71 10^3/uL (1.2-3.4); Absolute Monocyte Count 0.56 10^3/uL (0.1-0.8); Absolute Neutrophil Count 3.84 10^3/uL (1.2-6.7); Basophils % 0.5 %; Eosinophils % 1.5 %; HCT 43.1 % (36.0-46.0); HGB 13.7 g/dL (11.2-15.7); Immature Grans % 0.3 %; Lymphocytes % 37.2 %; MCH 28.4 pg (27.0-33.0); MCHC 31.8 % (32.0-36.0); MCV 89 fL (80-95); MPV 10.8 fL (8.0-11.0); Monocytes % 7.7 %; Neutrophils % 52.8 %; Platelet Count 201 10^3/uL (130-400); RBC 4.83 10^6/uL (3.93-5.22); RDW 13.3 % (11.7-14.6); RDW-SD 43.8 fL; WBC 7.28 10^3/uL (4.4-10.8)
[2024-07-08] MEDS: Normal Saline - Diluent 50 ML VIAL IJ (19:50)
[2024-07-08 20:01] LABS: PTT Activated 22.9 sec (20.6-30.2); Prothrombin Time 10.1 sec (9.1-11.1)
[2024-07-08 20:08] LABS: Troponin I 18 ng/L (<or=51)
[2024-07-08 20:15] LABS: ALT 24 U/L (14-59); AST 24 U/L (15-37); Albumin 3.6 g/dL (3.4-5.0); Alkaline Phosphatase 76 U/L (46-116); Anion Gap 10.3 mmol/L (3-11); BUN 36 mg/dL (7-18); Bilirubin, Total 0.4 mg/dL (0.2-1.0); CO2 29.7 mmol/L (21.0-32.0); CREATININE 1.3 mg/dL (0.55-1.02); Calcium 9.9 mg/dL (8.5-10.1); Chloride 103 mmol/L (98-107); Estimated GFR 39.55 (mL/min/1.73m2); Glucose 156 mg/dL (74-106); Magnesium 1.8 mg/dL (1.8-2.4); Potassium 3.3 mmol/L (3.5-5.1); Sodium 143 mmol/L (136-145); TSH (W/Ref FT4) 2.04 uIU/mL (0.36-3.74); Total Protein 7.1 g/dL (6.4-8.2)
--- NOTE | 2024-07-08 20:40 | DI.VRAD_ITS ---
Addendum created by Tariq Bermeo MD on 07/08/2024 8:44:51 PM EDT: THIS REPORT CONTAINS FINDINGS THAT MAY BE CRITICAL TO PATIENT CARE. The findings were verbally communicated via telephone conference with Oz Bansal at 8:44 PM EDT on 07/08/2024. The findings were acknowledged and understood. Initial report created on 07/08/2024 8:39:47 PM EDT: PROCEDURE INFORMATION: Exam: CTA Head Without And With Contrast, Arteriography Exam date and time: 07/08/2024 7:38 PM Age: 89 years old Clinical indication: Stroke-like symptoms; Other: ? CVA TECHNIQUE: Imaging protocol: Computed tomographic angiography of the head without and with contrast. Exam focused on the arteries. 3D rendering (Not supervised by radiologist): MIP and/or 3D reconstructed images were created by the technologist. Radiation optimization: All CT scans at this facility use at least one of these dose optimization techniques: automated exposure control; mA and/or kV adjustment per patient size (includes targeted exams where dose is matched to clinical indication); or iterative reconstruction. Contrast material: [id number]; Contrast volume: 70 ml; Contrast route: INTRAVENOUS (IV); Other technique: STROKE PROTOCOL was implemented. COMPARISON: CT HEAD CERV SPINE FACIAL WO 03/26/2023 6:18 AM FINDINGS: ANTERIOR CIRCULATION: Right internal carotid artery: Asymmetric decrease in caliber flow is seen throughout the petrous and cavernous segments of the right internal carotid artery with occlusion of the right ICA at the supraclinoid level. Right middle cerebral artery: No occlusion or significant stenosis. No aneurysm. Right anterior cerebral artery: No occlusion or significant stenosis. No aneurysm. Left internal carotid artery: Intracranial segment is patent with no significant stenosis. No aneurysm. Left middle cerebral artery: No occlusion or significant stenosis. No aneurysm. Left anterior cerebral artery: No occlusion or significant stenosis. No aneurysm. POSTERIOR CIRCULATION: Right vertebral artery: No occlusion or significant stenosis. No aneurysm. Left vertebral artery: No occlusion or significant stenosis. No aneurysm. Basilar artery: No occlusion or significant stenosis. No aneurysm. Right posterior cerebral artery: There is origin of the right posterior cerebral artery with suspected clot seen in the supraclinoid right ICA showing extension into the most proximal segment of the right SCREEN ROOM OPERATOR which appears patent distal to this level (see images 120-122 from series 10). Left posterior cerebral artery: No occlusion or significant stenosis. No aneurysm. HEAD: Brain: Cerebral atrophy and underlying microvascular ischemic changes with no acute transcortical infarction or recent intracranial hemorrhage detected. Cerebral ventricles: Dilatation of the 3rd and lateral ventricles is commensurate with the degree of cerebral atrophy. Bones: No acute fracture. Paranasal sinuses: Grossly clear throughout. Mastoid air cells: Grossly clear bilaterally. Soft tissues: Unremarkable. IMPRESSION: 1. Asymmetric decrease in caliber flow is seen throughout the petrous and cavernous segments of the right internal carotid artery with occlusion of the right ICA at the supraclinoid level. 2. There is origin of the right posterior cerebral artery with suspected clot seen in the supraclinoid right ICA showing extension into the most proximal segment of the right SCREEN ROOM OPERATOR which appears patent distal to this level as described above. 3. No large vessel stenosis or occlusion detected involving the remaining major branches of the anterior or posterior intracranial circulation. 4. Cerebral atrophy and underlying microvascular ischemic changes with no acute transcortical infarction or recent intracranial hemorrhage detected. ASSESSMENT: ASPECTS ([place]awna Stroke Program Early CT Score) is 10. PROCEDURE INFORMATION: Exam: CTA Neck Without And With Contrast Exam date and time: 07/08/2024 7:38 PM Age: 89 years old Clinical indication: Stroke-like symptoms; Other: ? CVA TECHNIQUE: Imaging protocol: Computed tomographic angiography of the neck without and with contrast. Exam focused on the cervical segments of the vasculature. 3D rendering (Not supervised by radiologist): MIP and/or 3D reconstructed images were created by the technologist. Radiation optimization: All CT scans at this facility use at least one of these dose optimization techniques: automated exposure control; mA and/or kV adjustment per patient size (includes targeted exams where dose is matched to clinical indication); or iterative reconstruction. Contrast material: [id number]; Contrast volume: 70 ml; Contrast route: INTRAVENOUS (IV); COMPARISON: CT HEAD CERV SPINE FACIAL WO 03/26/2023 6:18 AM FINDINGS: Right common carotid artery: No stenosis. No dissection or occlusion. Right internal carotid artery: No stenosis of the extracranial segment. No dissection or occlusion. Right external carotid artery: No occlusion or stenosis of the origin. Left common carotid artery: No stenosis. No dissection or occlusion. Left internal carotid artery: No stenosis of the extracranial segment. No dissection or occlusion. Left external carotid artery: No occlusion or stenosis of the origin. Right vertebral artery: No stenosis. No dissection or occlusion. Left vertebral artery: No stenosis. No dissection or occlusion. Soft tissues: Normal. No significant soft tissue swelling. Bones/joints: No acute fracture. IMPRESSION: No evidence of 50% or greater stenosis involving the cervical segments of the right or left internal carotid arteries by NASCET criteria. REFERENCES: NASCET CRITERIA. The degree of stenosis in the cervical segment of the internal carotid artery is based on NASCET criteria. Normal is no stenosis. Mild is less than 50% stenosis. Moderate is 50-69% stenosis. Severe is 70% to 99% stenosis. Total occlusion is no detectable patent lumen. Dictated and Authenticated by: Tariq Bermeo MD. Orderin Nimisha Clinton MD
[2024-07-08 20:52] LABS: Troponin I 17 ng/L (<or=51)
[2024-07-08] MEDS: niCARdipine 25 MG in Normal Saline 240 ML 50 MG IV (21:07)
[2024-07-08] MEDS: Tenecteplase 50 MG KIT 17.5 MG IVP (21:32)
[2024-07-08 22:17] LABS: Bilirubin Negative (Negative); Blood Large (Negative); Clarity Clear (Clear); Glucose Negative (Negative); Ketones Negative (Negative); Leukocyte Esterase Negative (Negative); Nitrite Negative (Negative); Urobilinogen 0.2 mg/dL (Up to 0.2); pH 5.5 (5-8)
[2024-07-08 22:26] LABS: Bacteria Moderate HPF (Negative); C & S Indicated? No; Casts 0-2 Hyaline LPF (Negative); Crystals Negative HPF (Negative); Epithelial Cells Few HPF (Negative); Mucus Negative (Negative); RBC >50 HPF (0-2); WBC 0-2 HPF (0-5)
== END 2024-07-08 22:31 | disposition short-term general hospital (02) ==
LOC: ER 19:44
PROVIDERS: Emergency Provider Emergency Medicine; PCP Family Medicine
DX: I65.21 Occlusion and stenosis of right carotid artery (principal); I10 Essential (primary) hypertension; E78.5 Hyperlipidemia, unspecified; G30.0 Alzheimer's disease with early onset; F02.80 Dementia in other diseases classified elsewhere, unspecified severity, without behavioral disturbance, psychotic disturbance, mood disturbance, and anxiety; Z79.899 Other long term (current) drug therapy
CPT/HCPCS: 70496; 70498; 80053; 82962; 93005; 96365; 96375; 99291; 81003; 81015; 83735; 84443; 84484; 85025; 85610; 85730; 93010; J2404; J3101; J3490

== ENCOUNTER 2024-08-03 14:25 | Outpatient (REF) | payer MEDICARE, BC, OTHER, SELFPAY | END 2024-08-03 14:26 | disposition home or self-care (01) | LOC: LBN 14:25 | PROVIDERS: PCP Family Medicine; Visit Provider Nurse Practitioner Family | DX: R39.15 Urgency of urination (principal); R39.9 Unspecified symptoms and signs involving the genitourinary system | CPT/HCPCS: 87086 ==